=== PATIENT | male | born 1980 | race Caucasian/White ===

== ENCOUNTER 2025-06-20 17:01 | Emergency (ER) | payer SELFPAY ==
--- OUTSIDE RECORDS SUMMARY | 2025-06-20 17:03 | XMS_ITS | Clinical Summary ---
Author Organization [address] Address [address] [place] [id number] Care Team Providers Care Splitter Tender Name Role Phone Masood Gallo MD Primary Care Provider [phone] Allergies No known active allergies Medications No known medications Active Problems Problem Noted Date Diagnosed Date Calculus of kidney 09/29/2016 Overview (02/05/2017): Renal stone Appendicitis 09/29/2016 Overview (02/05/2017): Appendicitis Surgical History Surgery Date Site/Laterality Comments APPENDECTOMY Appendectomy Medical History Medical History Date Comments Hx Other Medical 2015 kidney stones; Comments: CLS 09/29/2016 - Family History Medical History Relation Name Comments Diabetes Mother Diabetes mellit us; Thyroid cancer Sister Cancer, thyro id; Thyroid disease Sister Thyroid diso rder; Relation Name Status Comments Mother Sister Social History Tobacco Use Types Packs/Day Years Used Date Smoking Tobacco: Never Alcohol Use Standard Drinks/Week Comments Yes 0 (1 standard drink = 0.6 oz pur e alcohol) Sex and Gender Information Value Date Recorded Sex Assigned at Not on file Legal Sex Male 4:13 AM [employer] Gender Identity Not on file Sexual Orientation Not on file Obstetrics History Last Filed Vital Signs Vital Sign Reading Time Taken Comments Blood Pressure 140/96 01/16/2025 2:13 PM CDT Pulse 92 01/16/2025 2:13 PM CDT Temperature 36.8 C (98.2 F) 01/16/2025 2:13 PM CDT Respiratory Rate 20 01/16/2025 2:13 PM CDT Oxygen Saturation 99% 01/16/2025 2:13 PM CDT Inhaled Oxygen Concentration - - Weight 123.7 kg (272 lb 11.2 oz) 01/16/2025 2:13 PM CDT Height 177.8 cm (5' 10) 09/29/2016 3:31 PM [employer] Body Mass Index 39.13 09/29/2016 3:31 PM [employer] Plan of Treatment Health Maintenance Due Date Last Done Comments Colon Cancer Screening-Colonoscopy 1980 Depression Screening 1980 Hepatitis C Screening 1980 DTaP/Tdap/Td Vaccine (1 - Tdap) 01/24/1991 Varicella Vaccines (1 of 2 - 13+ 2-dose series) 01/24/1993 Hepatitis B Screening 01/24/1998 Regular Well Visit/Exam 18-64 01/24/1998 HPV Vaccines (1 - 3-dose SCD M series) 01/24/2007 Influenza Vaccine (#1) 2025 Pneumococcal vaccine <65 Aged Out No longer eligible based on patient's age to complete this topic Care Teams Splitter Tender Relationship Specialty Start Date End Date Masood Gallo MD [address] [place] [address] PCP - General 09/29/16
[2025-06-20 17:12] VITALS: BP 172/95; PULSE 108; RESP 16; TEMP 36.7; O2SAT 99
--- NOTE | 2025-06-20 17:18 | ED.LOWEXIN ---
HPI - Extremity Injury (Lower) General Chief Complaint: Extremity Injury, Lower Stated Complaint: pulled muscle in calf Time Seen by Provider: 06/20/25 17:18 Focused HPI: This is a 45-year-old male that presents to the emergency department for left lower leg pain. Reports he was stepping up onto a truck bed and felt a pop. Reports bruising and pain to the area. He had x-rays when this happened which were negative. Presents for further evaluation/management. GENERAL: Well-appearing, well-nourished, and in no acute distress. HEAD: Normocephalic, atraumatic. CHEST: Clear to auscultation. ?No respiratory distress. HEART: Regular rate and rhythm.? NEURO: ?Alert and oriented x3. Patient screened in triage and initial orders placed.? ?Additional care and disposition to be based upon?diagnostic testing and treatment. Related Data Allergies Allergy/AdvReac Type Severity Reaction Status Date / Time Chocolate Allergy Unknown Uncoded 09/13/14 14:35 Course Vital Signs Vital signs: Vital Signs Temperature 98.1 F 06/20/25 17:12 Pulse Rate 108 H 06/20/25 17:12 Respiratory Rate 16 06/20/25 17:12 Blood Pressure 172/95 H 06/20/25 17:12 Pulse Oximetry 99 06/20/25 17:12 Oxygen Delivery Room Air 06/20/25 17:12 Temperature 98.1 F 06/20/25 17:12 Pulse Rate 108 H 06/20/25 17:12 Respiratory Rate 16 06/20/25 17:12 Blood Pressure 172/95 H 06/20/25 17:12 Pulse Oximetry 99 06/20/25 17:12 Oxygen Delivery Room Air 06/20/25 17:12 MDM - Extremity Injury (Lower) MDM Narrative Medical decision making narrative: Patient eloped after medical screening exam and before any further evaluation or management Discharge Plan Discharge Clinical Impression: Strain of left calf muscle Patient Disposition: Elopement After Seen by Prov Patient Language: Estonian Follow-up/Referrals: Alli,Montana Pérez MD [Primary Care Provider]
== END 2025-06-20 22:52 | disposition left against medical advice (07) ==
LOC: ANHED 22:31
PROVIDERS: Emergency Provider Physician Assistant; PCP Internal Medicine
DX: S86.112A Strain of other muscle(s) and tendon(s) of posterior muscle group at lower leg level, left leg, initial encounter (principal); X50.0XXA Overexertion from strenuous movement or load, initial encounter
CPT/HCPCS: 99282